=== PATIENT | male | born 1960 | race Caucasian/White ===

== ENCOUNTER 2019-05-11 22:43 | Emergency (ER) | payer OTHER ==
[~2019-05-11] VITALS: Ht 182.9 cm; Wt 114.8 kg
--- NOTE | 2019-05-11 23:09 | NUR ---
Dr. Rodrigues at bedside for MSE.
[2019-05-11 23:27] LABS: BASOPHILS # (AUTO) 0.1 K/uL (0.0-8.0); BASOPHILS % (AUTO) 0.6 % (0.0-2.0); EOSINOPHILS # (AUTO) 0.2 K/uL (0.0-0.7); EOSINOPHILS % (AUTO) 1.7 % (0.0-7.0); HEMATOCRIT 43.9 % (36.7-47.1); HEMOGLOBIN 14.9 g/dL (12.5-16.3); LYMPHOCYTES # (AUTO) 3.7 K/uL (20.0-40.0); LYMPHOCYTES % (AUTO) 31.2 % (20.5-51.5); MEAN CORPUSCULAR HEMOGLOBIN 29.8 uug (23.8-33.4); MEAN CORPUSCULAR HGB CONC 34 g/dL (32.5-36.3); MEAN CORPUSCULAR VOLUME 87.7 fL (73.0-96.2); MONOCYTES # (AUTO) 1.2 K/uL (2.0-10.0); MONOCYTES % (AUTO) 9.8 % (0.0-11.0); NEUTROPHILS # (AUTO) 6.7 K/uL (1.8-8.9); NEUTROPHILS % (AUTO) 56.7 % (38.5-71.5); PLATELET COUNT (AUTO) 263 K/uL (152-348); RED BLOOD CELL COUNT(AUTO) 5.01 MIL/uL (4.06-5.63); WHITE BLOOD COUNT (AUTO) 11.8 K/uL (3.6-10.2)
--- NOTE | 2019-05-11 23:29 | NUR ---
Pt provided urine sample, sent to lab.
--- NOTE | 2019-05-11 23:38 | NUR ---
Xray at bedside.
[2019-05-11 23:41] LABS: CARBON DIOXIDE 20 mmol/L (21-32); CHLORIDE 101 mmol/L (98-107); GLUCOSE 163 mg/dL (74-106); POTASSIUM 3.7 mmol/L (3.5-5.1); UREA NITROGEN, BLOOD 20 mg/dL (7-18)
[2019-05-11 23:46] LABS: *BILIRUBIN,URIN NEGATIVE (NEGATIVE); *BLOOD, URINE NEGATIVE (NEGATIVE); *CLARITY,URINE CLEAR (CLEAR); *COLOR,URINE YELLOW (YELLOW); *KETONES,URINE NEGATIVE (NEGATIVE); *UROBILINOGEN,URINE 0.2 E.U./dl (NORMAL); LEUKOCYTE ESTERASE ,URINE NEGATIVE (NEGATIVE); NITRITE, URINE NEGATIVE (NEGATIVE); UGLUCOSE 2+ (NEGATIVE)
[2019-05-11 23:52] LABS: ALANINE AMINOTRANSFERASE 19 U/L (16-63); ALKALINE PHOSPHATASE 104 U/L (50-136); ASPARTATE AMINOTRANSFERASE < 5 U/L (15-37); BILIRUBIN,DIRECT 0.1 mg/dL (0.0-0.2); BILIRUBIN,TOTAL 0.4 mg/dL (0.2-1.0); TOTAL PROTEIN, SERUM 6.5 g/dL (6.4-8.2)
[2019-05-11 23:52] LABS: BACTERIA,URINE NONE SEEN /HPF (NONE SEEN); RBC,URINE NONE SEEN /HPF (0-3); SQUAMOUS EPITHELIAL CELL,UR FEW /HPF (NONE SEEN); WBC,URINE 0-3 /HPF (0-3)
--- NOTE | 2019-05-12 00:03 | NUR ---
Called [facility], spoke with Rik.
--- NOTE | 2019-05-12 00:05 | NUR ---
Dr. Rodrigues speaking with Dr. Minor of [place].
--- NOTE | 2019-05-12 00:48 | NUR ---
Received call back from [facility] with transfer information. Patient going to [facility], patient going to the ER, Accepting MD is Dr. Watters, number to report to is . ETA [phone].
--- NOTE | 2019-05-12 01:20 | NUR ---
[facility] arrived to ER to transport patient to [facility]. Report and documentation given to EMT.
--- NOTE | 2019-05-12 01:32 | NUR ---
Report given to Mari OLSON [facility].
== END 2019-05-12 01:34 | disposition short-term general hospital (02) ==
LOC: ER 22:46
DX: E11.649 Type 2 diabetes mellitus with hypoglycemia without coma (principal); I48.91 Unspecified atrial fibrillation
CPT/HCPCS: 36415; 70030-TC; 71045; 84443; 85025; 85730; 87040; 87086; 93005; A4663

== ENCOUNTER 2021-07-04 14:43 | Emergency (ER) | payer OTHER ==
[~2021-07-04] VITALS: Ht 182.9 cm; Wt 120.0 kg
--- NOTE | 2021-07-04 14:49 | NUR ---
[id number]
[2021-07-04 14:59] LABS: HEMATOCRIT 46.7 % (36.7-47.1); MEAN CORPUSCULAR HEMOGLOBIN 30.9 uug (23.8-33.4); MEAN CORPUSCULAR VOLUME 89.2 fL (73.0-96.2); PLATELET COUNT (AUTO) 231 K/uL (152-348)
[2021-07-04] MEDS ORDERED: HYDROMORPHONE 1 MG/1 ML DISP.SYRIN ONE ×2 (15:00→15:38)
[2021-07-04] MEDS ORDERED: IV NORMAL SALINE 1000 ML BAG IV ONE (15:00)
[2021-07-04] MEDS ORDERED: ONDANSETRON 4 MG/2 ML VIAL IV ONE (15:00)
[2021-07-04] MEDS ORDERED: HYDROMORPHONE 1 MG/1 ML DISP.SYRIN IV ONE ×2 (15:00→15:30)
[2021-07-04] MEDS ORDERED: ONDANSETRON 4 MG/2 ML VIAL ONE (15:01)
[2021-07-04] MEDS ORDERED: IV NORMAL SALINE 250 ML IV ONE (15:04)
[2021-07-04] MEDS ORDERED: IOHEXOL 350 100 ML INFUS..BTL ONE (15:04)
[2021-07-04] MEDS ORDERED: SWABABLE VALVE TRANSFER SET EA MC ONE (15:04)
[2021-07-04 15:08] LABS: CARBON DIOXIDE 29 mmol/L (21-32); CHLORIDE 100 mmol/L (98-107); CREATININE 1.2 mg/dL (0.6-1.3); GLUCOSE 186 mg/dL (74-106); POTASSIUM 3.4 mmol/L (3.5-5.1); UREA NITROGEN, BLOOD 15 mg/dL (7-18)
[2021-07-04] MEDS ORDERED: EMPA25TA PO (15:15)
[2021-07-04] MEDS ORDERED: DABI150C PO (15:15)
[2021-07-04] MEDS ORDERED: METO25TA6 PO (15:15)
[2021-07-04 15:16] LABS: ALANINE AMINOTRANSFERASE 22 U/L (16-63); ALKALINE PHOSPHATASE 130 U/L (50-136); ASPARTATE AMINOTRANSFERASE 10 U/L (15-37); BILIRUBIN,DIRECT < 0.1 mg/dL (0.0-0.2); BILIRUBIN,TOTAL 0.4 mg/dL (0.2-1.0); TOTAL PROTEIN, SERUM 7.7 g/dL (6.4-8.2)
--- NOTE | 2021-07-04 15:25 | NUR ---
DR. HEDRICK, NEUROLOGIST, COMMMUNICATING WITH THE PT OVER THE TELE STROKE MONITOR.
[2021-07-04] MEDS ORDERED: PRAV20TA4 PO (15:36)
[2021-07-04] MEDS ORDERED: PIOG15TA8 PO (15:36)
--- NOTE | 2021-07-04 15:36 | NUR ---
MEDICATION INFORMATION FROM PATIENT [facility] CAN RECALL.
--- NOTE | 2021-07-04 15:36 | NUR ---
PT NOT A CANDIDATE FOR [employer].
--- NOTE | 2021-07-04 15:39 | NUR ---
THE RESPONSE TIME IS FOLLOWS: CODE STROKE ACTIVATION [address] 1458 TELE NEUROLOGY ACTIVATED [id number]
--- NOTE | 2021-07-04 15:50 | NUR ---
DR. KNOX FROM [facility] TALKING TO DR. MILLER.
[2021-07-04] MEDS ORDERED: PIOG30TA10 PO (16:02)
[2021-07-04] MEDS ORDERED: METOCLOPRAMIDE HCL 10 MG/2 ML VIAL IV ONE (16:45)
[2021-07-04] MEDS ORDERED: diphenhydrAMINE 50 MG/1 ML VIAL IV ONE (16:45)
[2021-07-04] MEDS ORDERED: METOCLOPRAMIDE HCL 10 MG/2 ML VIAL ONE (16:54)
[2021-07-04] MEDS ORDERED: diphenhydrAMINE 50 MG/1 ML VIAL ONE (16:54)
--- NOTE | 2021-07-04 17:12 | NUR ---
[facility] CALLED WITH THE FOLLOWING INFO: PT IS [facility], ACCEPTING MD IS DR. VALLE, REPORT NUMBER IS [phone]
--- NOTE | 2021-07-04 17:39 | NUR ---
PT RESTING, NO SIGN OF DISTRESS, AROUSABLE.
--- NOTE | 2021-07-04 18:58 | NUR ---
REPORT GIVEN TO [facility].
--- NOTE | 2021-07-04 19:15 | NUR ---
AMBULANCE ARRANGED BY [facility] AT [facility] TO TRANSFER THE PT TO [facility]
== END 2021-07-04 19:22 | disposition short-term general hospital (02) ==
LOC: ER 14:43
DX: G44.53 Primary thunderclap headache (principal); R00.0 Tachycardia, unspecified; Z79.02 Long term (current) use of antithrombotics/antiplatelets; I65.23 Occlusion and stenosis of bilateral carotid arteries; E11.9 Type 2 diabetes mellitus without complications; Z79.84 Long term (current) use of oral hypoglycemic drugs; R03.0 Elevated blood-pressure reading, without diagnosis of hypertension; Z20.822 Contact with and (suspected) exposure to COVID-19
CPT/HCPCS: 36415; 70450; 70496; 70498; 71045; 80048; 80076; 82962; 84484 ×2; 85025; 85730; 86850; 86900; 86901; 87426; 93005; 96361; 96374; 96375; 96376; 99291; J1170 ×2; J1200; J2405; J2765; Q9967; A4663; J7030; J7050